=== PATIENT | male | born 1990 | race Two or more races ===

== ENCOUNTER 2023-11-29 20:20 | Emergency (ER) | payer BC ==
[2023-11-29] MEDS ORDERED: Naloxone 0.4 MG/ML SDV IVPUSH PRN (20:35)
[2023-11-29] MEDS: Morphine 2 MG/ML SYRINGE IVPUSH ONE (20:45)
[2023-11-29] MEDS: Sodium Chloride 0.9% 1,000 ML IV ONE (20:47)
[2023-11-29] MEDS: Sodium Chloride 0.9% 2.5 ML Syringe FLUSH PRN (20:51)
[2023-11-29] MEDS: Sodium Chloride 0.9% 10 ML Syringe FLUSH PRN (20:51)
[2023-11-29] MEDS: Ondansetron 4 MG/2 ML SDV IVPUSH ONE (20:51)
[2023-11-29 20:57] LABS: BASOPHILS ABSOLUTE AUTO 0.04 K/uL (0.00-0.20); BASOPHILS PERCENT AUTO 0.5 % (0.0-1.0); EOSINOPHILS PERCENT AUTO 3.7 % (0.0-6.0); HEMATOCRIT 43.8 % (42.0-52.0); HEMOGLOBIN 15.1 g/dL (14.0-18.0); IMMATURE GRAN ABSOLUTE AUTO 0.04 K/uL (0.00-0.05); IMMATURE GRAN PERCENT AUTO 0.5 % (0.0-0.4); LYMPHOCYTES ABSOLUTE AUTO 2.25 K/uL (1.00-4.80); LYMPHOCYTES PERCENT AUTO 27.8 % (24.0-44.0); MEAN CORPUSCULAR HGB CONC 34.5 g/dL (32.0-36.0); MEAN CORPUSCULAR VOLUME 87.1 fL (83.0-99.0); MONOCYTES ABSOLUTE AUTO 0.43 K/uL (0.00-0.80); MONOCYTES PERCENT AUTO 5.3 % (0.0-8.0); NEUTROPHILS ABSOLUTE AUTO 5.03 K/uL (1.80-7.70); NEUTROPHILS PERCENT AUTO 62.2 % (41.0-71.0); PLATELET COUNT,PLT 224 K/uL (150-400); RED BLOOD CELL COUNT 5.03 M/uL (4.52-5.90); WHITE BLOOD CELL COUNT,WBC 8.09 K/uL (3.9-11.3)
[2023-11-29 21:19] LABS: A/G RATIO 1.1 (0.9-1.6); ALBUMIN 3.8 g/dL (3.4-5.0); BILIRUBIN TOTAL 0.3 mg/dL (0.2-1.0); CALCIUM 8.6 mg/dL (8.5-10.1); CARBON DIOXIDE,CO2 22.9 mmol/L (21.0-32.0); CREATININE 0.9 mg/dL (0.8-1.3); EST CRCL DRUG DOSING (CG) 126.94 mL/min; PROTEIN TOTAL,TP 7.3 g/dL (6.4-8.2)
[2023-11-29] MEDS: Iopamidol 755 MG/ML 500 ML Multipack Bottle IVPUSH ONE (21:47)
[2023-11-29] MEDS: Ketorolac 30 MG/ML SDV IVPUSH ONE (22:29)
[2023-11-29 22:35] LABS: APPEARANCE,URINE CLEAR; BILIRUBIN,URINE NEGATIVE (NEGATIVE); COLOR,URINE YELLOW; GLUCOSE,URINE NEGATIVE (NEGATIVE); KETONES,URINE NEGATIVE (NEGATIVE); LEUKOCYTE ESTERASE,URINE NEGATIVE (NEGATIVE); NITRITE,URINE NEGATIVE (NEGATIVE); OCCULT BLOOD,URINE LARGE (NEGATIVE); PROTEIN,URINE TRACE mg/dL (NEGATIVE); UROBILINOGEN,URINE 0.2 EU/dL (<2.0)
[2023-11-29 22:57] LABS: BACTERIA,URINE RARE (NEGATIVE); EPITHELIAL CELLS,URINE RARE (NONE-FEW); RBC,URINE 40-50 (0-2/HPF); WBC,URINE 0-1 (0-5/HPF); YEAST,URINE OCCASIONAL
[2023-11-30] MEDS: cefTRIAXone 1 GM in Sodium Chloride 0.9% 50 ML IV ONE
[2023-11-30] MEDS: Fluconazole/Normal Saline 100 MG in Premix Bag 1 BAG IV SCH (00:35)
[2023-11-30] MEDS: Morphine 4 MG/ML Syringe IVPUSH ONE (03:01)
== END 2023-11-30 03:03 ==
LOC: MW.ED 20:20
DX: N13.2 Hydronephrosis with renal and ureteral calculous obstruction (principal); N39.0 Urinary tract infection, site not specified
CPT/HCPCS: 36415; 74177; 80053; 81001; 83690; 85025; 96365; 96367; 96375; 96376; 99285; J0696; J1450; J1885; J2270; J2405; J3490; J7030; Q9967

== ENCOUNTER 2024-06-29 20:34 | Emergency (ER) | payer BC ==
[2024-06-29] MEDS: Acetaminophen/HYDROcodone 325-5 MG Tab PO ONE (21:35)
== END 2024-06-29 22:47 | disposition home or self-care (01) ==
LOC: MW.ED 20:34
DX: S29.9XXA Unspecified injury of thorax, initial encounter (principal); W01.198A Fall on same level from slipping, tripping and stumbling with subsequent striking against other object, initial encounter
CPT/HCPCS: 71046; 99284; A9270

== ENCOUNTER 2024-09-08 16:23 | Emergency (ER) | payer BC | END 2024-09-08 19:43 | disposition left against medical advice (07) | LOC: MW.ED 16:23 | DX: Z53.21 Procedure and treatment not carried out due to patient leaving prior to being seen by health care provider (principal) ==

== ENCOUNTER 2024-09-10 11:38 | Emergency (ER) | payer BC ==
[2024-09-10] MEDS: Dexamethasone 4 MG Tab PO ONE (12:43)
[2024-09-10] MEDS: Acetaminophen 500 MG Tab PO ONE (12:43)
[2024-09-10] MEDS: Ketorolac 30 MG/ML SDV IM ONE (12:44)
== END 2024-09-10 13:29 | disposition home or self-care (01) ==
LOC: MW.ED 11:38
DX: M17.12 Unilateral primary osteoarthritis, left knee (principal); G89.29 Other chronic pain; M25.562 Pain in left knee; M25.462 Effusion, left knee; Z87.81 Personal history of (healed) traumatic fracture; Z79.899 Other long term (current) drug therapy
CPT/HCPCS: 73562; 96372; 99283; A9270; J1885; J8540

== ENCOUNTER 2024-10-05 11:27 | Emergency (ER) | payer BC | END 2024-10-05 13:56 | disposition home or self-care (01) | LOC: MW.ED 11:27 | DX: G89.29 Other chronic pain (principal); M25.562 Pain in left knee; Z87.81 Personal history of (healed) traumatic fracture; Z79.899 Other long term (current) drug therapy | CPT/HCPCS: 99283 ==

== ENCOUNTER 2025-04-27 14:48 | Emergency (ER) | payer BC | END 2025-04-27 17:16 | disposition home or self-care (01) | LOC: MW.ED 14:48 | DX: B34.9 Viral infection, unspecified (principal) | CPT/HCPCS: 87428-QW; 87651; 99283; 99284 ==

== ENCOUNTER 2025-05-20 19:44 | Inpatient (IN) | payer BC ==
[2025-05-20] MEDS ORDERED: Sodium Chloride 0.9% 10 ML Syringe FLUSH PRN (20:11)
[2025-05-20] MEDS ORDERED: Sodium Chloride 0.9% 2.5 ML Syringe FLUSH PRN (20:11)
[2025-05-20 20:16] LABS: BASOPHILS ABSOLUTE AUTO 0.04 K/uL (0.00-0.20); BASOPHILS PERCENT AUTO 0.4 % (0.0-1.0); EOSINOPHILS ABSOLUTE AUTO 0.11 K/uL (0.00-0.45); EOSINOPHILS PERCENT AUTO 1.2 % (0.0-6.0); IMMATURE GRAN ABSOLUTE AUTO 0.04 K/uL (0.00-0.05); IMMATURE GRAN PERCENT AUTO 0.4 % (0.0-0.4); LYMPHOCYTES ABSOLUTE AUTO 1.91 K/uL (1.00-4.80); LYMPHOCYTES PERCENT AUTO 20.0 % (24.0-44.0); MEAN PLATELET VOLUME 10.1 fL (9.4-12.4); MONOCYTES ABSOLUTE AUTO 0.60 K/uL (0.00-0.80); MONOCYTES PERCENT AUTO 6.3 % (0.0-8.0); NEUTROPHILS ABSOLUTE AUTO 6.85 K/uL (1.80-7.70); NEUTROPHILS PERCENT AUTO 71.7 % (41.0-71.0); NRBC ABSOLUTE 0.00 K/uL (0.00-0.02); NRBC PERCENT 0.0 /100WBC (0.0-0.2); PLATELET COUNT,PLT 224 K/uL (150-400); RED BLOOD CELL COUNT 5.31 M/uL (4.52-5.90); WHITE BLOOD CELL COUNT,WBC 9.55 K/uL (3.9-11.3)
[2025-05-20 20:24] LABS: INR 1.03 (0.86-1.11)
[2025-05-20 20:41] LABS: A/G RATIO 1.1 (0.9-1.6); ALANINE AMINOTRANSFERASE,ALT 49.0 IU/L (14-63); ASPARTATE AMNIOTRANSFERASE,AST 25.0 IU/L (15-37); BILIRUBIN TOTAL 0.5 mg/dL (0.2-1.0); BLOOD UREA NITROGEN,BUN 19.0 mg/dL (7.0-18.0); CARBON DIOXIDE,CO2 25.8 mmol/L (21.0-32.0); CHLORIDE,CL 105.0 mmol/L (98-107); CREATININE 1.1 mg/dL (0.8-1.3); EST CRCL DRUG DOSING (CG) 102.88 mL/min; ESTIMATED GFR 90.0 mL/min (>60); ETHANOL BLOOD MEDICAL 3.0 mg/dL; GLUCOSE RANDOM 102.0 mg/dL (74-106); POTASSIUM,K 3.9 mmol/L (3.5-5.1); PROTEIN TOTAL,TP 7.8 g/dL (6.4-8.2); SODIUM,NA 142.0 mmol/L (136-148)
[2025-05-20] MEDS: Iopamidol 755 MG/ML 500 ML Multipack Bottle IVPUSH ONE (20:43)
[2025-05-20] MEDS: Ondansetron 4 MG/2 ML SDV IVPUSH ONE (21:54)
[2025-05-20 22:13] LABS: APPEARANCE,URINE CLEAR; GLUCOSE,URINE NEGATIVE (NEGATIVE); OCCULT BLOOD,URINE NEGATIVE (NEGATIVE)
[2025-05-20] MEDS: Benzocaine 20% Topical Spray UD MUCMEM ONE ×2 (22:52)
[2025-05-21 00:03] LABS: LACTIC ACID 0.9 mmol/L (0.4-2.0)
[2025-05-21] MEDS ORDERED: Naloxone 0.4 MG/ML SDV IVPUSH PRN (01:10)
[2025-05-21] MEDS: Pantoprazole 80 MG in Sodium Chloride 0.9% 20 ML IVPUSH ONE (01:39)
[2025-05-21 06:00] LABS: MEAN PLATELET VOLUME 10.2 fL (9.4-12.4); NRBC PERCENT 0.0 /100WBC (0.0-0.2); PLATELET COUNT,PLT 194 K/uL (150-400); RED BLOOD CELL COUNT 5.16 M/uL (4.52-5.90); WHITE BLOOD CELL COUNT,WBC 13.46 K/uL (3.9-11.3)
[2025-05-21 06:29] LABS: BASOPHILS ABSOLUTE MAN 0.13 K/uL (0.00-0.20); BASOPHILS PERCENT MAN 1 % (0-1); LYMPHOCYTES ABSOLUTE MAN 1.48 K/uL (1.00-4.80); LYMPHOCYTES PERCENT MAN 11 % (24-44); MONOCYTES ABSOLUTE MAN 0.67 K/uL (0.00-0.80); MONOCYTES PERCENT MAN 5 % (0-8); SEG NEUTROPHILS ABSOLUTE MAN 11.17 K/uL (1.80-7.70); SEG NEUTROPHILS PERCENT MAN 83 % (41-71)
[2025-05-21] MEDS: Pantoprazole 40 MG in Sodium Chloride 0.9% 20 ML IVPUSH SCH (09:06)
[2025-05-21 10:28] LABS: A/G RATIO 1.0 (0.9-1.6); ALANINE AMINOTRANSFERASE,ALT 46.0 IU/L (14-63); ASPARTATE AMNIOTRANSFERASE,AST 25.0 IU/L (15-37); BILIRUBIN TOTAL 1.0 mg/dL (0.2-1.0); BLOOD UREA NITROGEN,BUN 19.0 mg/dL (7.0-18.0); CARBON DIOXIDE,CO2 23.0 mmol/L (21.0-32.0); CHLORIDE,CL 106.0 mmol/L (98-107); CREATININE 1.0 mg/dL (0.8-1.3); EST CRCL DRUG DOSING (CG) 113.17 mL/min; GLUCOSE RANDOM 119.0 mg/dL (74-106); POTASSIUM,K 3.9 mmol/L (3.5-5.1); PROTEIN TOTAL,TP 7.1 g/dL (6.4-8.2); SODIUM,NA 141.0 mmol/L (136-148)
[2025-05-21 10:32] LABS: ESTIMATED GFR 101.0 mL/min (>60)
[2025-05-21] MEDS ORDERED: Sodium Chloride 0.9% 2.5 ML Syringe FLUSH PRN (11:42)
[2025-05-21] MEDS ORDERED: Sodium Chloride 0.9% 10 ML Syringe FLUSH PRN (11:42)
[2025-05-21] MEDS ORDERED: Ondansetron 4 MG/2 ML SDV IVPUSH PRN ×2 (11:46→23:35)
[2025-05-21] MEDS: Iopamidol 755 MG/ML 500 ML Multipack Bottle IVPUSH STA (18:23)
[2025-05-21] MEDS ORDERED: Midazolam 1 MG/ML 2 ML SDV ONE (21:35)
[2025-05-21] MEDS ORDERED: fentaNYL 100 MCG/2 ML SDV ONE (21:35)
[2025-05-21] MEDS ORDERED: dexmedeTOMIDine HCl 200 MCG/2 ML SDV ONE (21:35)
[2025-05-21] MEDS ORDERED: Propofol 200 MG/20 ML SDV ONE (21:35)
[2025-05-21] MEDS ORDERED: Ropivacaine 0.5% 5 MG/ML 30 ML SDV ONE (21:38)
[2025-05-21] MEDS ORDERED: Dexamethasone 4 MG/ML 5 ML MDV ONE (22:46)
[2025-05-21] MEDS ORDERED: Ondansetron 4 MG/2 ML SDV ONE (22:46)
[2025-05-21] MEDS ORDERED: Ketorolac 30 MG/ML SDV ONE (23:04)
[2025-05-21] MEDS ORDERED: Acetaminophen/HYDROcodone 325-5 MG Tab PO PRN (23:35)
[2025-05-22 06:21] LABS: BASOPHILS ABSOLUTE AUTO 0.01 K/uL (0.00-0.20); BASOPHILS PERCENT AUTO 0.1 % (0.0-1.0); EOSINOPHILS ABSOLUTE AUTO 0.00 K/uL (0.00-0.45); EOSINOPHILS PERCENT AUTO 0.0 % (0.0-6.0); IMMATURE GRAN ABSOLUTE AUTO 0.05 K/uL (0.00-0.05); IMMATURE GRAN PERCENT AUTO 0.4 % (0.0-0.4); LYMPHOCYTES ABSOLUTE AUTO 0.83 K/uL (1.00-4.80); LYMPHOCYTES PERCENT AUTO 6.1 % (24.0-44.0); MEAN PLATELET VOLUME 9.9 fL (9.4-12.4); MONOCYTES ABSOLUTE AUTO 0.32 K/uL (0.00-0.80); MONOCYTES PERCENT AUTO 2.4 % (0.0-8.0); NEUTROPHILS ABSOLUTE AUTO 12.37 K/uL (1.80-7.70); NEUTROPHILS PERCENT AUTO 91.0 % (41.0-71.0); NRBC ABSOLUTE 0.00 K/uL (0.00-0.02); NRBC PERCENT 0.0 /100WBC (0.0-0.2); PLATELET COUNT,PLT 177 K/uL (150-400); RED BLOOD CELL COUNT 4.56 M/uL (4.52-5.90); WHITE BLOOD CELL COUNT,WBC 13.58 K/uL (3.9-11.3)
[2025-05-22 06:46] LABS: A/G RATIO 0.8 (0.9-1.6); ALANINE AMINOTRANSFERASE,ALT 32.0 IU/L (14-63); ASPARTATE AMNIOTRANSFERASE,AST 17.0 IU/L (15-37); BILIRUBIN TOTAL 1.3 mg/dL (0.2-1.0); BLOOD UREA NITROGEN,BUN 15.0 mg/dL (7.0-18.0); CARBON DIOXIDE,CO2 25.7 mmol/L (21.0-32.0); CHLORIDE,CL 107.0 mmol/L (98-107); CREATININE 1.0 mg/dL (0.8-1.3); EST CRCL DRUG DOSING (CG) 113.17 mL/min; GLUCOSE RANDOM 133.0 mg/dL (74-106); POTASSIUM,K 4.0 mmol/L (3.5-5.1); PROTEIN TOTAL,TP 6.8 g/dL (6.4-8.2); SODIUM,NA 141.0 mmol/L (136-148)
[2025-05-22 06:51] LABS: ESTIMATED GFR 101.0 mL/min (>60)
== END 2025-05-22 11:27 | disposition home or self-care (01) | DRG 234 ==
LOC: MW.ED 19:44 → OBSVTOIN 23:23 → MW.MS 23:23 → UNDOADMOB 23:53 → MW.MS 05-21 15:22
PROVIDERS: ADMIT Internal Medicine; ATTEND Internal Medicine
PROC: 0DTJ0ZZ Resection of Appendix, Open Approach (ICD-10-PCS; principal; 2025-05-20)
DX: K35.80 Unspecified acute appendicitis (principal); K29.70 Gastritis, unspecified, without bleeding
CPT/HCPCS: 00840; 36415; 43752; 64488; 74177; 74177-26; 76700; 76700-26; 80053; 80307; 81003; 83605; 83690; 85007; 85025; 85027; 85610; 85730; 96361; 96374; 96375; 96376; 99285; 99285-25; A9270-GY; G0378; J0665; J1100; J1171; J1885; J2003; J2250; J2270; J2371; J2405; J2470; J2543; J2704; J2795; J3010; J3490; J7030; Q9967

== ENCOUNTER 2025-07-22 16:39 | Emergency (ER) | payer BC | END 2025-07-22 18:57 | disposition home or self-care (01) | LOC: MW.ED 16:39 | DX: L73.9 Follicular disorder, unspecified (principal); R21 Rash and other nonspecific skin eruption; Z79.899 Other long term (current) drug therapy | CPT/HCPCS: 99282; J8540; 99283 ==